=== PATIENT | female | born 1935 | race Caucasian/White ===

== ENCOUNTER 2017-12-13 10:57 | Inpatient (IN) | payer OTHER ==
[~2017-12-13] VITALS: Ht 167.6 cm; Wt 72.3 kg
[2017-12-13] MEDS ORDERED: GOOD NEIGHBOR P20 M2 PO (12:49)
[2017-12-13] MEDS ORDERED: LIPI20 PO (12:49)
[2017-12-13 13:01] LABS: CALCIUM 9.6 mg/dL (8.5-10.1); CARBON DIOXIDE 27.9 mmol/L (21-32); CHLORIDE SERUM 108 mmol/L (98-107); CREATININE SERUM 0.6 mg/dL (0.6-1.0); GLUCOSE SERUM 93 mg/dL (74-106); POTASSIUM SERUM 4.2 mmol/L (3.5-5.1); SODIUM SERUM 142 mmol/L (136-145)
[2017-12-13 13:06] LABS: ALBUMIN 3.7 g/dL (3.4-5.0); ALKALINE PHOSPHATASE 83 U/L (46-116); ALT/SGPT 30 U/L (14-59); AST/SGOT 27 U/L (15-37); BILIRUBIN TOTAL 0.61 mg/dL (0.20-1.00); TOTAL PROTEIN, SERUM 7.3 g/dL (6.4-8.2)
[2017-12-13] MEDS ORDERED: ASPIR 8181 MG PO (13:10)
[2017-12-13] MEDS ORDERED: GOOD SENSE ASPI81 M3 PO (13:10)
[2017-12-13 13:14] LABS: BASOPHIL % 0.4 % (0-2); PLATELET COUNT 256 x10^3mcL (130-400); RED CELL DISTRIBUTION WIDTH 12.5 % (11.5-14.5)
[2017-12-13 13:43] LABS: CHOLESTEROL/HDL RATIO 3.3; MAGNESIUM 2.3 mg/dL (1.8-2.4); PHOSPHOROUS 3.8 mg/dL (2.5-4.9)
[2017-12-13 13:52] LABS: FREE T4 0.91 ng/dL (0.76-1.46); FREE THYROXINE INDEX 1.7 ug/dL (1.4-4.5); T4(THYROXINE) 5.4 ug/dL (4.7-13.3)
[2017-12-13 14:06] VITALS: BP 131/69
[2017-12-13 14:52] LABS: T3 TOTAL 0.85 ng/mL
[2017-12-13 19:46] LABS: microscopic required? NO
[2017-12-13 19:50] LABS: UA SPECIFIC GRAVITY 1.015 (1.005-1.035); urine erythrocyte NEGATIVE (NEGATIVE)
[2017-12-13 20:59] VITALS: BP 116/62
[2017-12-14 06:17] VITALS: BP 105/51
[2017-12-14 07:40] LABS: CALCIUM 9.2 mg/dL (8.5-10.1); CARBON DIOXIDE 26.8 mmol/L (21-32); CHLORIDE SERUM 108 mmol/L (98-107); CREATININE SERUM 0.6 mg/dL (0.6-1.0); GLUCOSE SERUM 88 mg/dL (74-106); MAGNESIUM 2.2 mg/dL (1.8-2.4); PHOSPHOROUS 3.3 mg/dL (2.5-4.9); POTASSIUM SERUM 3.9 mmol/L (3.5-5.1); SODIUM SERUM 143 mmol/L (136-145)
[2017-12-14 07:41] LABS: BASOPHIL % 0.6 % (0-2); PLATELET COUNT 228 x10^3mcL (130-400); RED CELL DISTRIBUTION WIDTH 12.7 % (11.5-14.5)
[2017-12-14 09:03] VITALS: BP 168/77
[2017-12-14 12:35] VITALS: BP 122/52
[2017-12-14 16:38] VITALS: BP 135/64
[2017-12-14 19:54] VITALS: BP 126/75
[2017-12-15 05:32] VITALS: BP 167/71
[2017-12-15 06:34] LABS: PLATELET COUNT 216 x10^3mcL (130-400); RED CELL DISTRIBUTION WIDTH 12.6 % (11.5-14.5)
[2017-12-15 06:44] LABS: BASOPHIL % 0 % (0-2)
[2017-12-15 07:07] LABS: CALCIUM 8.5 mg/dL (8.5-10.1); CARBON DIOXIDE 22.3 mmol/L (21-32); CHLORIDE SERUM 108 mmol/L (98-107); CREATININE SERUM 0.5 mg/dL (0.6-1.0); GLUCOSE SERUM 98 mg/dL (74-106); POTASSIUM SERUM 3.9 mmol/L (3.5-5.1); SODIUM SERUM 139 mmol/L (136-145)
[2017-12-15 13:14] VITALS: BP 130/77
[2017-12-15 17:00] VITALS: BP 132/71
[2017-12-15 21:30] VITALS: BP 106/74
[2017-12-16 05:46] VITALS: BP 119/71
[2017-12-16 06:28] LABS: BASOPHIL % 0.8 % (0-2); PLATELET COUNT 184 x10^3mcL (130-400); RED CELL DISTRIBUTION WIDTH 12.4 % (11.5-14.5)
[2017-12-16 06:29] LABS: CALCIUM 8.5 mg/dL (8.5-10.1); CARBON DIOXIDE 25.6 mmol/L (21-32); CHLORIDE SERUM 107 mmol/L (98-107); CREATININE SERUM 0.6 mg/dL (0.6-1.0); GLUCOSE SERUM 125 mg/dL (74-106); POTASSIUM SERUM 3.7 mmol/L (3.5-5.1); SODIUM SERUM 141 mmol/L (136-145)
[2017-12-16 10:52] VITALS: BP 129/63
[2017-12-16 13:28] VITALS: BP 107/54
[2017-12-16 17:50] VITALS: BP 91/55
[2017-12-16 19:20] VITALS: BP 104/51
[2017-12-16 21:18] VITALS: BP 113/56
[2017-12-17 05:39] VITALS: BP 127/54
[2017-12-17 06:20] LABS: BASOPHIL % 0.5 % (0-2); PLATELET COUNT 184 x10^3mcL (130-400); RED CELL DISTRIBUTION WIDTH 12.8 % (11.5-14.5)
[2017-12-17 06:58] LABS: CALCIUM 8.7 mg/dL (8.5-10.1); CARBON DIOXIDE 28.1 mmol/L (21-32); CHLORIDE SERUM 108 mmol/L (98-107); CREATININE SERUM 0.6 mg/dL (0.6-1.0); GLUCOSE SERUM 104 mg/dL (74-106); SODIUM SERUM 142 mmol/L (136-145)
[2017-12-17 09:37] VITALS: BP 124/51
[2017-12-17 20:17] VITALS: BP 98/56
[2017-12-18 05:35] VITALS: BP 120/54
[2017-12-18 07:56] LABS: BASOPHIL % 0.3 % (0-2); PLATELET COUNT 182 x10^3mcL (130-400); RED CELL DISTRIBUTION WIDTH 12.7 % (11.5-14.5)
[2017-12-18 08:14] LABS: CALCIUM 8.4 mg/dL (8.5-10.1); CARBON DIOXIDE 26.6 mmol/L (21-32); CHLORIDE SERUM 108 mmol/L (98-107); CREATININE SERUM 0.5 mg/dL (0.6-1.0); GLUCOSE SERUM 108 mg/dL (74-106); POTASSIUM SERUM 3.6 mmol/L (3.5-5.1); SODIUM SERUM 141 mmol/L (136-145)
[2017-12-18 09:30] VITALS: BP 108/49
[2017-12-18 17:01] VITALS: BP 104/48
[2017-12-18 20:39] VITALS: BP 105/51
[2017-12-19 05:57] VITALS: BP 130/71
[2017-12-19 09:07] VITALS: BP 115/59
[2017-12-19 17:46] VITALS: BP 126/65
[2017-12-20 06:19] VITALS: BP 127/62
[2017-12-20 07:04] LABS: BASOPHIL % 0.4 % (0-2); PLATELET COUNT 248 x10^3mcL (130-400); RED CELL DISTRIBUTION WIDTH 12.5 % (11.5-14.5)
[2017-12-20 07:05] LABS: CALCIUM 8.6 mg/dL (8.5-10.1); CARBON DIOXIDE 25.4 mmol/L (21-32); CHLORIDE SERUM 110 mmol/L (98-107); CREATININE SERUM 0.6 mg/dL (0.6-1.0); GLUCOSE SERUM 99 mg/dL (74-106); PHOSPHOROUS 2.9 mg/dL (2.5-4.9); SODIUM SERUM 143 mmol/L (136-145)
[2017-12-20 08:46] VITALS: Ht 167.6 cm; Wt 72.3 kg
[2017-12-20 10:35] VITALS: BP 137/69
[2017-12-20 17:00] VITALS: BP 130/77
[2017-12-20 21:22] VITALS: BP 123/67
[2017-12-21 06:27] VITALS: BP 121/69
[2017-12-21 07:09] LABS: BASOPHIL % 1.1 % (0-2); PLATELET COUNT 277 x10^3mcL (130-400); RED CELL DISTRIBUTION WIDTH 12.8 % (11.5-14.5)
[2017-12-21 07:37] LABS: CALCIUM 8.9 mg/dL (8.5-10.1); CARBON DIOXIDE 26.5 mmol/L (21-32); CHLORIDE SERUM 107 mmol/L (98-107); CREATININE SERUM 0.5 mg/dL (0.6-1.0); GLUCOSE SERUM 85 mg/dL (74-106); MAGNESIUM 2.4 mg/dL (1.8-2.4); PHOSPHOROUS 3.6 mg/dL (2.5-4.9); POTASSIUM SERUM 4.3 mmol/L (3.5-5.1); SODIUM SERUM 139 mmol/L (136-145)
[2017-12-21 10:12] VITALS: BP 120/66
[2017-12-21 17:54] VITALS: BP 109/55
[2017-12-21 21:26] VITALS: BP 122/54
[2017-12-22 05:28] VITALS: BP 121/76
[2017-12-22 06:14] LABS: PLATELET COUNT 325 x10^3mcL (130-400); RED BLOOD CELLS 3.06 M/mm3 (4.10-5.10); RED CELL DISTRIBUTION WIDTH 12.5 % (11.5-14.5)
[2017-12-22 06:38] LABS: CALCIUM 8.8 mg/dL (8.5-10.1); CARBON DIOXIDE 27.1 mmol/L (21-32); CHLORIDE SERUM 106 mmol/L (98-107); CREATININE SERUM 0.7 mg/dL (0.6-1.0); GLUCOSE SERUM 93 mg/dL (74-106); MAGNESIUM 2.3 mg/dL (1.8-2.4); PHOSPHOROUS 3.5 mg/dL (2.5-4.9); POTASSIUM SERUM 4.4 mmol/L (3.5-5.1); SODIUM SERUM 140 mmol/L (136-145)
[2017-12-22 06:58] LABS: IRON 37 ug/dL (50-170)
[2017-12-22 07:06] LABS: TOTAL IRON BINDING CAPACITY 201 ug/dL (250-450)
[2017-12-22 09:24] VITALS: BP 116/55
[2017-12-22] MEDS ORDERED: FER300 PO (14:05)
[2017-12-22] MEDS ORDERED: METHOCARBAMOL500 MG PO (14:06)
[2017-12-22] MEDS ORDERED: APAP/HYDROCODON1 T13 PO (14:07)
[2017-12-22] MEDS ORDERED: TYL325 PO (14:07)
[2017-12-22] MEDS ORDERED: HEP5I SC (14:07)
[2017-12-22] MEDS ORDERED: GABAPENTIN400 M1 PO (14:09)
[2017-12-22] MEDS ORDERED: COL100 PO (14:10)
[2017-12-22] MEDS ORDERED: ELA10 PO (14:10)
[2017-12-22 14:11] VITALS: BP 116/55
[2017-12-22] MEDS ORDERED: ONDANSETRON4 M3 PO (14:12)
[2017-12-22] MEDS ORDERED: BENC TOP (14:18)
[2017-12-22] MEDS ORDERED: PROTONIX40 MG/Pac1 PO (14:18)
[2017-12-22] MEDS ORDERED: VITC PO (14:19)
== END 2017-12-22 15:35 | DRG 469 ==
LOC: ED 10:57 → MU 12:31 → DU 12:31 → MU 12-16 17:30
PROVIDERS: Emergency Medicine; Family Medicine; Neuromusculoskeletal Medicine, Sports Medicine; Student in an Organized Health Care Education/Training Program
PROC: 0SRS0JZ Replacement of Left Hip Joint, Femoral Surface with Synthetic Substitute, Open Approach (ICD-10-PCS; principal; 2017-12-15 07:30)
DX: S72.002A Fracture of unspecified part of neck of left femur, initial encounter for closed fracture (principal); N17.0 Acute kidney failure with tubular necrosis; W18.39XA Other fall on same level, initial encounter; K21.9 Gastro-esophageal reflux disease without esophagitis; M17.0 Bilateral primary osteoarthritis of knee; E78.5 Hyperlipidemia, unspecified; D64.9 Anemia, unspecified; N31.9 Neuromuscular dysfunction of bladder, unspecified; E78.00 Pure hypercholesterolemia, unspecified; Y93.89 Activity, other specified; Y92.89 Other specified places as the place of occurrence of the external cause; Y99.8 Other external cause status; Z72.89 Other problems related to lifestyle; Z91.041 Radiographic dye allergy status; Z86.73 Personal history of transient ischemic attack (TIA), and cerebral infarction without residual deficits; Z79.899 Other long term (current) drug therapy; Z90.710 Acquired absence of both cervix and uterus; Z98.42 Cataract extraction status, left eye; Z98.41 Cataract extraction status, right eye
CPT/HCPCS: 83880; 84439; 94150; 97110-GP; 97116-GP; 97530-GP; C1776; J0690; J1644; J1885; J2250; J2270; J2704; J2800; J3010; J3490; J7030; J7120; Q0092; Q0162; Q0163